=== PATIENT | male | born 1965 | race African-American/Black ===

== ENCOUNTER 2017-04-07 16:41 | Observation (INO) ==
[2017-04-07] MEDS ORDERED: HYDROmorphone 2 MG/1 ML VIAL IV STA (16:49)
[2017-04-07] MEDS ORDERED: ONDANSETRON 4 MG/2 ML VIAL IV STA (16:49)
[2017-04-07] MEDS ORDERED: LACTATED RINGERS 1,000 ML IV STA (16:49)
[2017-04-07] MEDS ORDERED: DIPH/TET/ACEL PERT BOOSTER VACCINE 0.5 ML VIAL IM ONE ×3 (16:49→17:07)
[2017-04-07 16:57] LABS: Basophils # 0.1 10*3/uL (0.0-0.2); Basophils % 0.4 % (0.0-0.8); Eosinophils # 0.5 10*3/uL (0.0-0.87); Eosinophils % 3.2 % (0.00-10.9); Hematocrit 40.9 VOL% (42.0-52.0); Hemoglobin 14.1 GM/DL (14.0-18.0); Immature Granulocytes % 0.5 %; Immature Granulocytes Absolute 0.07 #; Lymphocytes # 5.4 10*3/uL (1.4-4.0); Mean Corpuscular HGB Conc 34.5 GM/DL (32-36); Mean Corpuscular Hemoglobin 28 PG (27-34); Mean Corpuscular Volume 80.5 FL (87-102); Mean Platelet Volume 10.6 FL (9.6-12.0); Monocytes # 1.6 10*3/uL (0.11-0.8); Monocytes % 11.2 % (1.7-12.7); Neutrophils # 6.7 10*3/uL (1.4-7.4); Neutrophils % 46.7 % (38.7-73.9); Platelet Count 343 T/CUMM (130-400); Red Blood Count 5.08 MC/CUMM (3.8-5.5); Red Cell Distribution Width 13.8 % (9.3-17.3); White Blood Count 14.3 T/CUMM (4-12)
[2017-04-07] MEDS ORDERED: ceFAZolin 1,000 MG VIAL ONE (17:04)
[2017-04-07 17:07] LABS: PT Patient Result 10.6 SECS; Partial Thromboplastin Time 26.2 SECS (0-40)
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
--- NOTE | 2017-04-07 17:17 | XRay Report ---
Portable chest Date: 04/07/2017 Clinical history: Chest injury Comparison: None Technique: Portable AP sitting chest Findings: The heart is normal in size. Probable minimal chronic scarring in the lungs with no definite pneumothorax. Degenerative changes are noted . Grilling fork projecting in the right upper quadrant location with no significant free air. Impression: Probable minimal chronic scarring. No evidence pneumothorax. Grilling fork projecting in the right upper quadrant location. PROCEDURE INTERPRETED AT [facility] DEPARTMENT OF RADIOLOGY Final Report Signed by: Dr. Samantha Guerra
--- NOTE | 2017-04-07 17:22 | XRay Report ---
Exam: XR lumbar spine 1V Date: 04/07/2017 4:51 PM Comparison: None Indication: Impalement to right flank Technique:[AP and lateral lumbar] Findings: The alignment of the lumbar spine is unremarkable. Transition vertebra. Sclerosis with osteophytes. No acute fracture. Metallic grilling fork projects in the posterior right upper quadrant location. The tips extend to the level of the spine. Nonobstructed bowel gas pattern. Impression: Minimal DDD with no acute fracture. Metallic grilling fork projecting in the posterior right upper quadrant/flank location. The tip projects at the level of the spine with transition vertebra. PROCEDURE INTERPRETED AT [facility] DEPARTMENT OF RADIOLOGY Final Report Signed by: Dr. Samantha Guerra
[2017-04-07] MEDS ORDERED: MORPHINE 2 MG/1 ML SYRINGE ONE (17:42)
[2017-04-07] MEDS ORDERED: MORPHINE 2 MG/1 ML SYRINGE IV STA (17:46)
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
[2017-04-07 20:30] LABS: Bilirubin,Total 0.5 MG/DL (0.2-1.0); Total Protein 7.4 G/DL (6.4-8.3)
[2017-04-07 20:31] LABS: Albumin 3.8 G/DL (3.4-5.0); Lactic Acid 3.1 MMOL/L (0.4-2.0); Osmolality,Calculated 274.7 MOS/KG (273-304); Potassium 4.3 MMOL/L (3.5-5.1)
[2017-04-07 23:15] LABS: Apearance,Urine CLEAR (Clear); Bilirubin,Urine Negative (Negative); Blood, Urine Negative (Negative); Glucose,Urine (UA) Negative (Negative); Ketones,Urine Negative (Negative); Mucus,Urine Occasional /LPF (Occasional); Nitrite,Urine Negative (Negative); Protein,Urine Negative; Squamous Epithelial Cell,Urine Occasional /HPF (0-10); Urine Color Colorless (Yellow); Urine Specific Gravity 1.014 (1.001-1.035); Urine Urobilinogen < 2.0 EU/DL (0.2-1.0); WBC,Urine 1 /HPF (0-6)
[2017-04-07 23:26] LABS: Barbiturates Screen,Urine Negative (Negative); Benzodiazepines Screen,Urine Negative (Negative); Cannabinoid Screen,Urine Positive (Negative); Opiate Screen,Urine Positive (Negative); Phencyclidine Screen,Urine Negative (Negative)
[2017-04-07 23:33] LABS: ABG Base Excess 1.7 MMOL/L (-2.5-2.5); ABG HCO3 25.1 MMOL/L (20-26); ABG Oxygen Saturation 96.9 % (95-100); ABG PH 7.462 (7.35-7.45); ABG PO2 83.3 MM HG (80-95); ABG TCO2 26.2 MMOL/L (23-27); Allen Test Positive; Pt O2 Delivery Device Room Air
--- NOTE | 2017-04-08 04:24 | EKG Report ---
Stationary ECG Study [facility] ER Test Date: 04/07/2017 6:07:58 PM Pat Name: SHELLI MESSER Department: Room: 286 Gender: M [employer] Manager: : 1965 Requested by: Asad Zimmerman Order Number: [id number] Eduard MD: JELLY ALEGRIA Intervals [place] Rate: 93 P: 66 [place]: 187 QRS: 1 QRSD: 85 T: 44 QT: 350 QTc: 401 Interpretive Statements SINUS RHYTHM Electronically Signed On 04-09-17 16:07:55 CDT by JELLY ALEGRIA [email or web address]
[2017-04-08 09:42] LABS: Basophils % 0.3 % (0.0-0.8); Eosinophils # 0.2 10*3/uL (0.0-0.87); Eosinophils % 1.6 % (0.00-10.9); Hematocrit 37.5 VOL% (42.0-52.0); Hemoglobin 13.4 GM/DL (14.0-18.0); Immature Granulocytes % 0.3 %; Immature Granulocytes Absolute 0.04 #; Lymphocytes # 2.6 10*3/uL (1.4-4.0); Lymphocytes % 20.5 % (21.2-54.2); Mean Corpuscular HGB Conc 35.7 GM/DL (32-36); Mean Corpuscular Hemoglobin 29 PG (27-34); Mean Corpuscular Volume 79.6 FL (87-102); Mean Platelet Volume 10.3 FL (9.6-12.0); Monocytes # 1.9 10*3/uL (0.11-0.8); Monocytes % 14.6 % (1.7-12.7); Neutrophils % 62.7 % (38.7-73.9); Platelet Count 306 T/CUMM (130-400); Red Blood Count 4.71 MC/CUMM (3.8-5.5); Red Cell Distribution Width 13.6 % (9.3-17.3); White Blood Count 12.8 T/CUMM (4-12)
[2017-04-08 10:11] LABS: Calcium 8.7 MG/DL (8.5-10.1); Osmolality,Calculated 275.5 MOS/KG (273-304)
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
[2017-04-08 11:36] VITALS: BP 118/70
== END 2017-04-08 13:15 | disposition home or self-care (01) ==
LOC: EDUNIT# → EDBD → N.EDINP 16:41 → N.ED 16:41 → N.TELEN 18:24
PROVIDERS: ADMIT Surgery; ATTEND Surgery